=== PATIENT | male | born 1945 | race Caucasian/White ===

== ENCOUNTER 2017-06-12 21:13 | Observation (INO) ==
[2017-06-12] MEDS ORDERED: METOCLOPRAMIDE 10 MG/2 ML VIAL IV STA (22:06)
[2017-06-12] MEDS ORDERED: PANTOPRAZOLE 40 MG VIAL IV STA (22:06)
[2017-06-12] MEDS ORDERED: PANTOPRAZOLE 40 MG VIAL IV ONE (22:14)
[2017-06-12] MEDS ORDERED: METOCLOPRAMIDE 10 MG/2 ML VIAL ONE (22:14)
[2017-06-12 22:45] LABS: Basophils # 0.1 10*3/uL (0.0-0.2); Basophils % 0.6 % (0.0-0.8); Eosinophils % 0.3 % (0.00-10.9); Hematocrit 39.4 VOL% (42.0-52.0); Hemoglobin 12.9 GM/DL (14.0-18.0); Immature Granulocytes % 0.4 %; Immature Granulocytes Absolute 0.06 #; Lymphocytes # 2.9 10*3/uL (1.4-4.0); Lymphocytes % 20.3 % (21.2-54.2); Mean Corpuscular HGB Conc 32.7 GM/DL (32-36); Mean Corpuscular Hemoglobin 29 PG (27-34); Mean Corpuscular Volume 89.7 FL (87-102); Monocytes # 0.9 10*3/uL (0.11-0.8); Neutrophils # 10.4 10*3/uL (1.4-7.4); Neutrophils % 72.4 % (38.7-73.9); Platelet Count 307 T/CUMM (130-400); Red Blood Count 4.39 MC/CUMM (3.8-5.5); Red Cell Distribution Width 13.8 % (9.3-17.3); White Blood Count 14.4 T/CUMM (4-12)
[2017-06-12 23:02] LABS: Albumin 4.2 G/DL (3.4-5.0); Bilirubin,Total 0.4 MG/DL (0.2-1.0); Calcium 10.2 MG/DL (8.5-10.1); Osmolality,Calculated 286.5 MOS/KG (273-304); Potassium 3.1 MMOL/L (3.5-5.1); Total Protein 8.8 G/DL (6.4-8.3)
[2017-06-12 23:17] LABS: PT Patient Result 10.5 SECS; Partial Thromboplastin Time 27.8 SECS (0-40)
[2017-06-12] MEDS ORDERED: ONDANSETRON 4 MG/2 ML VIAL IV PRN (23:21)
[2017-06-13] MEDS ORDERED: SODIUM CHLOR 0.45% KCL 20 MEQ 20 MEQ/1,000 ML BAG IV SCH (00:29)
[2017-06-13] MEDS ORDERED: SODIUM CHLORIDE 0.9% 1,000 ML IV SCH (07:30)
[2017-06-13] MEDS ORDERED: SUCCINYLCHOLINE 200 MG/10 ML VIAL ONE (10:34)
[2017-06-13] MEDS ORDERED: PROPOFOL 200 MG/20 ML VIAL IV ONE (10:34)
[2017-06-13] MEDS ORDERED: LIDOCAINE 2% 5 ML VIAL ONE (10:34)
[2017-06-13] MEDS ORDERED: SUGAMMADEX 200 MG/2 ML VIAL IV ONE (11:10)
[2017-06-13 12:06] VITALS: BP 143/93
== END 2017-06-13 14:39 | disposition home or self-care (01) ==
LOC: EDUNIT# → EDBD → N.EDINP 21:13 → N.ED 21:13 → N.2E 23:46
PROVIDERS: ADMIT Hospitalist; ATTEND Hospitalist